=== PATIENT | female | born 1995 | race Caucasian/White ===

== ENCOUNTER 2017-06-28 20:21 | Emergency (ER) | payer SELFPAY ==
[2017-06-28 22:27] LABS: APPEARANCE,URINE CLOUDY; BILIRUBIN,URINE NEGATIVE (NEGATIVE); GLUCOSE, URINE NEGATIVE (NEGATIVE); KETONES,URINE NEGATIVE (NEGATIVE); LEUKOCYTE ESTERASE,URINE LARGE (NEGATIVE); NITRITE,URINE NEGATIVE (NEGATIVE); PROTEIN,URINE NEGATIVE (NEGATIVE); UROBILINOGEN,URINE NEGATIVE mg/dL (<2.0)
[2017-06-28 22:28] LABS: COLOR,URINE YELLOW
--- NOTE | 2017-06-28 23:30 | RADIOLOGY REPORT (SQ) ---
EXAM DESCRIPTION: U/S OB TRANSVAGINAL W/O DOP CLINICAL HISTORY: 21 years, Female, , LLQ pain COMPARISON: None. TECHNIQUE: Transvaginal LIMITATIONS: None. FINDINGS: Living intrauterine fetus measures 6w2d with ANDREWS of 02/19/2018. Cardiac activity is 121 bpm. [place]-rump length is 0.36 cm. 4 x 2.2 x 2.7 cm left ovary appears of normal size, shape, echotexture, and vascularity. Right ovarian fossa is unremarkable. Right ovary is not directly visualized. No free fluid. Cervical length is 3.3 cm. IMPRESSION: Living intrauterine fetus measures 6w2d with ANDREWS of 02/19/2018. No evidence of complication.
--- NOTE | 2017-06-28 23:46 | ER Document Report ---
ED General - General Chief Complaint: Vag Bleeding, +preg <12wks Stated Complaint: LEFT SIDE ABDOMINAL PAIN Time Seen by Provider: 06/28/17 21:29 Notes: Patient is a 21-year-old female at 6 weeks by LMP who presents with 1 week of intermittent left lower quadrant abdominal pain and one day of spotting. Patient describes the pain in her lower abdomen as being a dull, throbbing, intermittent pain. Nothing improves or worsens this pain. She denies any history of similar symptoms during her previous or prior to the past 1 week during this . She knows that approximately 6 days ago she did have a small amount of vaginal bleeding when she wiped after going to the bathroom but has not had any recurrence of bleeding since that time. She has not yet established care for this . She denies any associated dysuria, fever or constitutional symptoms. TRAVEL OUTSIDE OF THE [place] IN LAST 30 DAYS: No - Related Data Allergies/Adverse Reactions: No Known Allergies Allergy (Verified 06/28/17 22:50) Past Medical History - General Information source: Patient Last Menstrual Period: 04/2017 - Social History Smoking Status: Never Smoker Chew tobacco use (# tins/day): No Frequency of alcohol use: None Drug Abuse: None Lives with: Friend Family History: Reviewed & Not Pertinent Patient has suicidal ideation: No Patient has homicidal ideation: No Renal/ Medical History: Denies: Hx Peritoneal Dialysis Review of Systems - Review of Systems Notes: Constitutional: Negative for fever. HENT: Negative for sore throat. Eyes: Negative for visual changes. Cardiovascular: Negative for chest pain. Respiratory: Negative for shortness of breath. Gastrointestinal: Positive for abdominal pain and nausea Genitourinary: Positive for vaginal bleeding Musculoskeletal: Negative for back pain. Skin: Negative for rash. Neurological: Negative for headaches, weakness or numbness. 10 point ROS negative except as marked above and in HPI. Physical Exam - Vital signs Vitals: Temp Pulse Resp BP Pulse Ox 98.0 F 76 16 132/69 H 100 06/28/17 20:33 06/28/17 20:33 06/28/17 20:33 06/28/17 20:33 06/28/17 20:33 Interpretation: Normal Notes: PHYSICAL EXAMINATION: GENERAL: Well-appearing, well-nourished and in no acute distress. HEAD: Atraumatic, normocephalic. EYES: Pupils equal round and reactive to light, extraocular movements intact, sclera anicteric, conjunctiva are normal. ENT: nares patent, oropharynx clear without exudates. Moist mucous membranes. NECK: Normal range of motion, supple without lymphadenopathy LUNGS: Breath sounds clear to auscultation bilaterally and equal. No wheezes rales or rhonchi. HEART: Regular rate and rhythm without murmurs ABDOMEN: Soft, nontender, normoactive bowel sounds. No guarding, no rebound. No masses appreciated. EXTREMITIES: Normal range of motion, no pitting or edema. No cyanosis. NEUROLOGICAL: No focal neurological deficits. Moves all extremities spontaneously and on command. PSYCH: Normal mood, normal affect. SKIN: Warm, Dry, normal turgor, no rashes or lesions noted. Course - Re-evaluation Re-evalutation: 06/28/17 23:45 Patient presents with a mild amount of vaginal bleeding in the setting of a first trimester . Ultrasound does demonstrate a viable intrauterine with active heart rate. No active bleeding at time of presentation. She is Rh positive. Patient's abdominal exam is otherwise benign without any focal tenderness. I do not suspect an acute appendicitis, pyelonephritis, cystitis, or bowel obstruction. At this time will discharge with return precautions and follow-up recommendations. Verbal discharge instructions given a the bedside and opportunity for questions given. Medication warnings reviewed. Patient is in agreement with this plan and has verbalized understanding of return precautions and the need for primary care follow-up in the next 24-72 hours. - Vital Signs Vital signs: Temp Pulse Resp BP Pulse Ox 98.6 F 92 H 14 120/74 98 06/28/17 23:59 06/28/17 23:59 06/28/17 23:59 06/28/17 23:59 06/28/17 23:59 - Laboratory Laboratory results interpreted by mi: 06/28/17 06/28/17 22:08 23:19 Beta HCG, Quant 10638.00 H Urine Blood SMALL H Ur Leukocyte Esterase LARGE H - Diagnostic Test Radiology reviewed: Reports reviewed Discharge - Discharge Clinical Impression: Hemorrhage, , early, Abdominal pain affecting Condition: Good Disposition: HOME, SELF-CARE Additional Instructions: Your ultrasound today shows a living intrauterine . Please follow closely with your primary care JUICE WEIGHER. Please return if you develop severe abdominal pain, bleeding that goes through more than 2 pads for more than 2 hours, pass out, or have any other symptoms that are concerning to you. Please follow-up closely with your OBGYN regarding todays visit.
[2017-06-29 00:01] VITALS: BP 120/74
== END 2017-06-29 00:30 | disposition home or self-care (01) ==
LOC: ER 20:21
DX: O20.9 Hemorrhage in early pregnancy, unspecified (principal); O26.891 Other specified pregnancy related conditions, first trimester; R10.32 Left lower quadrant pain; R11.0 Nausea; Z3A.01 Less than 8 weeks gestation of pregnancy; Z67.90 Unspecified blood type, Rh positive
CPT/HCPCS: 36415; 76817; 81001; 84702; 86900; 86901; 99284

== ENCOUNTER 2017-07-02 20:49 | Emergency (ER) | payer MEDICAID ==
[2017-07-02 20:54] VITALS: BP 138/64
[2017-07-02 22:40] LABS: ABSOLUTE EOSINOPHILS # (AUTO) 0.1 10^3/uL (0.0-0.6); ABSOLUTE LYMPHOCYTES (AUTO) 1.4 10^3/uL (0.5-4.7); ABSOLUTE MONOCYTES (AUTO) 0.4 10^3/uL (0.1-1.4); ABSOLUTE NEUT (AUTO) 6.4 10^3/uL (1.7-8.2); BASOPHILS % (AUTO) 0.4 % (0-2); EOSINOPHILS % (AUTO) 0.7 % (0-6); HEMATOCRIT 35.7 % (36.0-47.0); HEMOGLOBIN 12.1 g/dL (12.0-15.5); LYMPHOCYTES % (AUTO) 17.3 % (13-45); MEAN CORPUSCULAR HGB CONC 33.9 g/dL (32.0-36.0); MEAN CORPUSCULAR VOLUME 83 fl (80-97); MONOCYTES % (AUTO) 4.5 % (3-13); PLATELET COUNT 242 10^3/uL (150-450); RED BLOOD COUNT 4.32 10^6/uL (3.72-5.28); RED CELL DISTRIBUTION WIDTH 12.9 % (11.5-14.0); SEGMENTED NEUTROPHILS % (AUTO) 77.1 % (42-78); TOTAL CELLS COUNTED % (AUTO) 100 %; WHITE BLOOD COUNT 8.3 10^3/uL (4.0-10.5)
--- NOTE | 2017-07-03 00:11 | ER Document Report ---
ED General - General Chief Complaint: Vaginal Bleeding Stated Complaint: VAGINAL BLEEDING Time Seen by Provider: 07/02/17 22:18 Notes: Patient is a 21-year-old female at approximately 6 weeks and 4 days by prior ultrasound who presents with vaginal bleeding. Patient was seen by me several days ago for lower abdominal cramping and a small amount of bleeding. A transvaginal ultrasound at that time showed a viable intrauterine with a heart rate. Patient states that she was concerned because today she had a small amount of blood with associated clots passed from her vagina. She denies any ongoing bleeding. She does note a mild, intermittent, cramping lower abdominal pain. Nothing improves or worsens her symptoms. She denies any vaginal discharge, dysuria, fever or constitutional symptoms. She has not yet followed up with M[employer]ICIPAL SERVICES MANAGER. TRAVEL OUTSIDE OF THE [place] IN LAST 30 DAYS: No - Related Data Allergies/Adverse Reactions: No Known Allergies Allergy (Verified 06/28/17 22:50) Past Medical History - General Information source: Patient - Social History Smoking Status: Never Smoker Chew tobacco use (# tins/day): No Frequency of alcohol use: None Drug Abuse: None Lives with: Friend Family History: Reviewed & Not Pertinent Patient has suicidal ideation: No Patient has homicidal ideation: No Renal/ Medical History: Denies: Hx Peritoneal Dialysis Review of Systems - Review of Systems Notes: Constitutional: Negative for fever. HENT: Negative for sore throat. Eyes: Negative for visual changes. Cardiovascular: Negative for chest pain. Respiratory: Negative for shortness of breath. Gastrointestinal: Positive for lower abdominal cramping Genitourinary: Positive for vaginal bleeding Musculoskeletal: Negative for back pain. Skin: Negative for rash. Neurological: Negative for headaches, weakness or numbness. 10 point ROS negative except as marked above and in HPI. Physical Exam - Vital signs Vitals: Temp Pulse Resp BP Pulse Ox 98.4 F 83 17 138/64 H 97 07/02/17 20:54 07/02/17 20:54 07/02/17 20:54 07/02/17 20:54 07/02/17 20:54 Interpretation: Normal Notes: PHYSICAL EXAMINATION: GENERAL: Well-appearing, well-nourished and in no acute distress. HEAD: Atraumatic, normocephalic. EYES: Pupils equal round and reactive to light, extraocular movements intact, sclera anicteric, conjunctiva are normal. ENT: nares patent, oropharynx clear without exudates. Moist mucous membranes. NECK: Normal range of motion, supple without lymphadenopathy LUNGS: Breath sounds clear to auscultation bilaterally and equal. No wheezes rales or rhonchi. HEART: Regular rate and rhythm without murmurs ABDOMEN: Soft, nontender, normoactive bowel sounds. No guarding, no rebound. No masses appreciated. EXTREMITIES: Normal range of motion, no pitting or edema. No cyanosis. NEUROLOGICAL: No focal neurological deficits. Moves all extremities spontaneously and on command. PSYCH: Normal mood, normal affect. SKIN: Warm, Dry, normal turgor, no rashes or lesions noted. Course - Re-evaluation Re-evalutation: 07/03/17 03:07 Patient presents with a mild amount of vaginal bleeding in the setting of a first trimester . Ultrasound done less than 2 days ago showed a viable intrauterine with a heart rate and there is no indication for repeat ultrasound. No active bleeding at time of presentation. She is Rh positive. Patient's abdominal exam is otherwise benign without any focal tenderness. I do not suspect an acute appendicitis, pyelonephritis, cystitis, or bowel obstruction. At this time will discharge with return precautions and follow-up recommendations. Verbal discharge instructions given a the bedside and opportunity for questions given. Medication warnings reviewed. Patient is in agreement with this plan and has verbalized understanding of return precautions and the need for primary care follow-up in the next 24-72 hours. - Vital Signs Vital signs: Temp Pulse Resp BP Pulse Ox 98.4 F 83 17 138/64 H 97 07/02/17 20:54 07/02/17 20:54 07/02/17 20:54 07/02/17 20:54 07/02/17 20:54 - Laboratory Result Diagrams: 07/02/17 22:25 Laboratory results interpreted by me: 07/02/17 07/02/17 22:25 22:25 Hct 35.7 L Beta HCG, Quant [id number] H Discharge - Discharge Clinical Impression: Hemorrhage, , early, Abdominal pain affecting Condition: Good Disposition: HOME, SELF-CARE Additional Instructions: Your ultrasound several days ago shows a living intrauterine . Your hormone level is rising as expected. Please follow closely with your primary care M[employer]ICIPAL SERVICES MANAGER. Please return if you develop severe abdominal pain, bleeding that goes through more than 2 pads for more than 2 hours, pass out, or have any other symptoms that are concerning to you. Please follow-up closely with your OBGYN regarding todays visit.
== END 2017-07-03 00:15 | disposition home or self-care (01) ==
LOC: ER 20:49
DX: O20.9 Hemorrhage in early pregnancy, unspecified (principal); R10.30 Lower abdominal pain, unspecified; Z3A.01 Less than 8 weeks gestation of pregnancy
CPT/HCPCS: 36415; 84702; 85025; 99284